=== PATIENT | female | born 1955 | race Caucasian/White ===

== ENCOUNTER 2018-08-17 07:43 | Day surgery (SDC) | payer OTHER ==
[2018-08-17] MEDS ORDERED: EPHEDrine 25 MG/5 ML SYG IV ×2 (07:44→12:00)
[2018-08-17] MEDS ORDERED: CEFAZOLIN 2 GM/50 ML (PMX) 50 ML IVPB (09:00)
[2018-08-17] MEDS ORDERED: SOD CHLORIDE 0.9% 1,000 ML IV (09:00)
[2018-08-17] MEDS ORDERED: FENTAnyl 50 MCG/ML VIAL (11:21)
[2018-08-17] MEDS ORDERED: CEFAZOLIN 1 GM INJ (11:21)
[2018-08-17] MEDS ORDERED: PROPOFOL 20 ML (11:21)
[2018-08-17] MEDS ORDERED: MIDAZOLAM 1 MG/ML 2 ML INJ (11:21)
[2018-08-17] MEDS ORDERED: METOCLOPRAMIDE 10 MG INJ (11:45)
[2018-08-17] MEDS ORDERED: KETOROLAC 30 MG INJ (11:45)
[2018-08-17] MEDS ORDERED: ONDANSETRON 4 MG INJ (11:45)
[2018-08-17] MEDS ORDERED: hydrALAzine 20 MG INJ IV (12:00)
[2018-08-17] MEDS ORDERED: FENTAnyl 50 MCG/ML VIAL IV ×2 (12:00)
[2018-08-17] MEDS ORDERED: HYDROmorphONE 1 MG/5 ML IV SYRINGE IV ×2 (12:00)
[2018-08-17] MEDS ORDERED: HYDROCODONE/APAP (5/325) TAB PO (12:00)
[2018-08-17] MEDS ORDERED: ONDANSETRON 4 MG INJ IV (12:00)
[2018-08-17] MEDS ORDERED: LABETALOL HCL 20MG INJ IV (12:00)
[2018-08-17] MEDS ORDERED: METOCLOPRAMIDE 10 MG INJ IV (12:00)
[2018-08-17] MEDS: BUPIVACAINE 0.25% (MPF) 30 ML INJ (12:19)
== END 2018-08-17 13:40 | disposition home or self-care (01) ==
LOC: SDS 07:43
DX: D17.24 Benign lipomatous neoplasm of skin and subcutaneous tissue of left leg (principal); I10 Essential (primary) hypertension; E11.9 Type 2 diabetes mellitus without complications; E78.5 Hyperlipidemia, unspecified
CPT/HCPCS: 14020; 82962